=== PATIENT | female | born 1960 | race Two or more races ===

== ENCOUNTER 2017-11-17 05:25 | Day surgery (SDC) | payer BC ==
[2017-11-17] MEDS ORDERED: MIDAZOLAM HCL 2 MG/2ML VIAL ONE (06:38)
== END 2017-11-17 08:40 | disposition home or self-care (01) ==
LOC: DS 05:25
PROVIDERS: ATTEND Specialist
DX: S83.231A Complex tear of medial meniscus, current injury, right knee, initial encounter (principal); S83.281A Other tear of lateral meniscus, current injury, right knee, initial encounter; M94.261 Chondromalacia, right knee; X58.XXXA Exposure to other specified factors, initial encounter; Y93.89 Activity, other specified; Y92.89 Other specified places as the place of occurrence of the external cause; Y99.8 Other external cause status; Z82.49 Family history of ischemic heart disease and other diseases of the circulatory system; Z83.3 Family history of diabetes mellitus; Z80.8 Family history of malignant neoplasm of other organs or systems
CPT/HCPCS: 29880; 88304; 88311; A4217; A6253 ×2; J0690; J1100; J2001; J2250; J2704